=== PATIENT | female | born 1995 | race Caucasian/White ===

== ENCOUNTER → 2017-01-08 | Outpatient (CLI) | payer BC ==
[~2017-01-08] MED LIST: NORE0.3527 PO; SNQ/25 PO
[2017-01-11 00:36] LABS: CHLAMYDIA TRACH RNA*** NOT DETECTED (NOT DETECTED); GC (NEIS GONORRHOEAE)RNA** NOT DETECTED (NOT DETECTED)
== END | disposition home or self-care (01) ==
LOC: C.LABSPEC 17:57
PROVIDERS: ATTEND Physician Assistant
DX: N92.6 Irregular menstruation, unspecified (principal)

== ENCOUNTER → 2017-01-15 | Outpatient (CLI) | payer BC | END | disposition home or self-care (01) | LOC: C.RDSM 08:00 | PROVIDERS: ATTEND Physical Medicine & Rehabilitation Sports Medicine | DX: G57.51 Tarsal tunnel syndrome, right lower limb (principal) ==

== ENCOUNTER → 2017-02-06 | Day surgery (SDC) | payer BC ==
[2017-01-18 09:45] VITALS: Ht 172.7 cm; Wt 83.6 kg
[~2017-02-06] VITALS: Ht 172.7 cm; Wt 83.6 kg
[~2017-02-06] MED LIST changes: +ATROPINE SULFATE 0.1 MG/ML 5ML SYR IV PRN; +CEFAZOLIN 2000 MG/60 ML D5W IV SCH; +DEXAMETHASONE SOD INJ 4 MG/ML VIAL ONE; +EpHEDrine SULFATE INJ 50 MG/ML AMP IV PRN; +FENTANYL CITRATE INJ 50 MCG/1 ML 2 ML VIAL ONE; +FLUMAZENIL 0.1 MG/1 ML 10 ML VIAL IV PRN; +KETOROLAC TROMETHAMINE 30 MG/ML VIAL ONE; +LACTATED RINGER'S 1000ML 1,000 ML IV SCH; +LIDOCAINE HCL 2% 2 ML VIAL (20MG/ML) ONE; +MIDAZOLAM HCL 1 MG/ML 2ML VIAL ONE; +NALOXONE HCL 0.4 MG/1 ML VIAL/CARP IV PRN; +NURSING VERBAL MED ORDER ONE; +ONDANSETRON INJ 2 MG/ML 2 ML VIAL IV PRN; +ONDANSETRON INJ 2 MG/ML 2 ML VIAL ONE; +OXYCODONE/ACETAMINOPHEN 5-325 TAB PO PRN; +PROMETHAZINE HCL INJ 12.5 MG in SODIUM CHLORIDE 0.9% 50ML 50 ML IV PRN; +PROPOFOL IV EMULSION 10 MG/ML 20 ML VIAL IV ONE; +SODIUM CHLORIDE 0.9% 1000ML 1,000 ML IV SCH
--- NOTE | 2017-02-06 08:40 | Discharge Instructions ---
Discharge Instructions Date of Service Feb 06, 2017. Visit Reason for Visit: Right Tarsal Tunnel Syndrome Discharge Discharge Diagnosis / Problem: same Discharge Goals Goal(s): Decrease discomfort, Improve function Medications Stopped Medications Name(s): na Restart Stopped Medication(s): use all scripts as directed Activity Recommendations Activity Limitations: as noted below Lifting Limitations: until after follow-up appointment Exercise/Sports Limitations: until after follow-up appointment May Resume Sexual Activity: when tolerated Shower/Bathe: keep incision dry Driving or Machine Use: Weightbearing Status: Right weightbearing (as tolerated) Anesthesia . Post Anesthesia Instructions: If you have had General Anesthesia or IV Sedation: * Do not drive today. * Resume driving when surgeon permits. * Do not make important decisions or sign legal documents today. * Call surgeon for: 1. Temperature elevations greater than 101 degrees F. 2. Uncontrollable pain. 3. Excessive bleeding. 4. Persistent nausea and vomiting. 5. Medication intolerance (nausea, vomiting or rash). * For nausea and vomiting use only clear liquids such as: tea, soda, bouillon until nausea subsides, then gradually increase diet as tolerated. * If you have any concerns or questions, call your surgeon's office. If physician is unavailable and it is an emergency, call 911 or go to the nearest emergency room. . Instructions / Follow-Up Instructions / Follow-Up DIET: * Resume previous diet. MEDICATIONS: * Please take your prescriptions as instructed at your pre-op appointment and/ or see medication discharge instructions listed above. * If concerns develop, call your physician's office at . SPECIAL CARE INSTRUCTIONS: * Ice/Elevate as instructed. * Keep dressing clean, dry, intact. * Your surgical extremity may be discolored due to prepping agents used on the skin. A bluish-green tint is a normal variant and should not cause alarm. Call your doctor at [phone] if: * Temperature above 101 degrees * Pain not relieved by pain medicine ordered * There is increased drainage or redness from any incision * You have any unanswered questions, problems or concerns. FOLLOW UP VISIT: * If not already scheduled, please call the office at to schedule a follow-up appointment. Diet Recommendations Recommended Home Diet: resume previous diet Procedures Procedures Performed: Right tarasal tunnel release Pending Studies Studies pending at discharge: no Medical Emergencies . Who to Call and When: Medical Emergencies: If at any time you feel your situation is an emergency, please call 911 immediately. . Non-Emergent Contact Non-Emergency issues call your: Specialist Call Non-Emergent contact if: temperature is above 101.5 . . "Provider Documentation" section prepared by Kurt Baron. .
--- NOTE | 2017-02-06 09:41 | History & Physical Bridge Note ---
H&P Re-Evaluation Bridge Note: I have examined the patient, reviewed the History & Physical and in the interval since the performance of the History & Physical I have noted the following changes of clinical significance: No changes noted
--- NOTE | 2017-02-06 12:03 | [facility] Post Operative Brief Note ---
Immediate Operative Summary Operative Date Feb 06, 2017. Pre-Operative Diagnosis Right Tarsal Tunnel Syndrome Post-Operative Diagnosis Same Procedure(s) Performed Right Tarsal Tunnel Open Release Surgeon Dr. Baron Home Paraprofessional Surgeon(s) Greer Cuenca PA-C Estimated Blood Loss Trace Findings nerve adhesions Specimens None Drains none Anesthesia LMA Complication(s) None Disposition Recovery Room / PACU
[2017-02-06] MEDS: HYDROmorphone INJ 1 MG/ML SYR IV PRN ×3 (12:20→12:44)
--- NOTE | 2017-02-06 12:53 | OPERATIVE REPORT ---
DATE OF OPERATION: 02/06/2017 PREOPERATIVE DIAGNOSIS: Tarsal tunnel syndrome, right lower extremity, post-ankle sprain. POSTOPERATIVE DIAGNOSIS: Same. OPERATION PERFORMED: Tarsal tunnel release, posterior tibial nerve decompression right lower extremity. SURGEON: Dr. Baron. NARROW GAUGE BRAKEMAN: Tenzin Cuenca PA-C. No resident or fellow available. PERIOPERATIVE SITUATION: Medically cleared female who has burning into her foot and pain into her foot in the arch, numbness into the plantar surface of her foot and has been documented by EMG nerve conduction study following post-ankle sprain. She has no sign of any FHL entrapment and no posterior tibiotalar impingement, os trigonum syndrome. Options were discussed with the patient and family, she is leaving for college, wants to try to get this taken care of now. She understands that there is no guarantee. OPERATION AND FINDINGS: OPERATION: The patient appropriately identified, site verified, consent verified, 2 grams of Ancef confirmed as being given. The right lower extremity was prepped and draped in usual routine fashion. Tourniquet was inflated to 275 mmHg after exsanguination of limb with a rubber Esmarch bandage for a total of 20 minutes. Posterior approach to the ankle is made. Curvilinear incision retromalleolar, full thickness flaps raised and dissection carried from proximal to distal. The nerve was quite scarred to the artery and vein, it was completely adhesed to that area indicative of ankle injury. It was dissected clean through the master knot of Wolf with care taken to protect all 3 branches of the posterior tibial nerve. The nerve and artery were then completely dissected free of each other and the tourniquet deflated. There was no major bleeding encountered. The wound was then irrigated. The FHL was then inspected. There was no major injury back there. This was left alone. The procedure was then terminated after final irrigation, closed with horizontal 3-0 nylon suture, dressed appropriately. Estimated blood loss was trace. Crystalloid 1000 mL. DVT prophylaxis per protocol. I attest to the content of the Intraoperative Record and any orders documented therein. Any exception s are noted below.
--- NOTE | 2017-02-06 13:29 | Anesthesia Progress Nt - [facility] ---
Anesthesia Post Op Note Date & Time Feb 06, 2017 at 13:28 Vital Signs Pain Intensity: 3 Vital Signs Past 12 Hours Date Time Temp Pulse Resp B/P (MAP) Pulse Ox O2 Delivery O2 Flow Rate FiO2 02/06/17 13:11 36.2 79 18 116/75 (89) 100 Room Air 02/06/17 13:02 119/70 02/06/17 13:01 36.6 64 12 119/70 99 Room Air 02/06/17 13:01 66 11 02/06/17 13:01 64 11 100 02/06/17 12:57 113/67 02/06/17 12:56 65 12 100 02/06/17 12:56 66 12 02/06/17 12:52 109/74 02/06/17 12:51 64 12 02/06/17 12:51 62 12 99 02/06/17 12:47 123/72 02/06/17 12:46 65 16 02/06/17 12:46 67 16 100 02/06/17 12:42 117/77 02/06/17 12:41 59 11 02/06/17 12:41 61 11 100 02/06/17 12:40 61 10 100 02/06/17 12:40 61 10 02/06/17 12:37 116/79 02/06/17 12:35 60 15 02/06/17 12:35 59 15 100 02/06/17 12:32 119/74 02/06/17 12:30 71 13 100 02/06/17 12:30 66 13 02/06/17 12:27 114/81 02/06/17 12:25 89 16 100 02/06/17 12:25 87 16 02/06/17 12:22 126/73 02/06/17 12:20 93 15 100 02/06/17 12:20 96 15 02/06/17 12:17 124/62 02/06/17 12:15 100 18 100 02/06/17 12:15 101 18 02/06/17 12:12 133/75 02/06/17 12:10 36.5 106 16 133/75 100 Diffusion Mask 6 02/06/17 09:32 36.5 103 22 113/88 (96) 99 Room Air Notes Mental Status: alert / awake / arousable, participated in evaluation Pt Amnestic to Procedure: Yes Nausea / Vomiting: adequately controlled Pain: adequately controlled Airway Patency, RR, SpO2: stable & adequate BP & HR: stable & adequate Hydration State: stable & adequate Anesthetic Complications: no major complications apparent
[2017-02-06 13:34] VITALS: BP 107/68; PULSE 65; O2SAT 99
--- NOTE | 2017-02-06 18:52 | OPERATIVE REPORT ---
PREOPERATIVE DIAGNOSIS: Right ankle tarsal tunnel syndrome. POSTOPERATIVE DIAGNOSIS: Right ankle same. PROCEDURE: Right ankle open tarsal tunnel release. SURGEON: Dr. Baron. MEDICAL RECEPTIONIST BILLER: Tenzin Cuenca PA-C. HISTORY OF PRESENT ILLNESS: This 21-year-old white female presented to the office with complaints of right foot numbness and tingling with burning into her arch after spraining her ankle last winter. Preoperative EMG was obtained. She elected to proceed with surgical intervention after being educated about potential risks and outcomes. OPERATION: The patient was taken to the operating room where she was given general anesthetic. She was prepped and draped in the usual sterile fashion. Please see Dr. Baron's operative report for specifics of the procedure. I was present for the entire case from initial patient positioning through final wound closure. Assistance was provided in tissue retraction, hemostasis, and final wound closure. The patient was taken to the recovery room in satisfactory condition.
== END | disposition home or self-care (01) ==
LOC: X.SURG 09:09
PROVIDERS: ATTEND Physical Medicine & Rehabilitation Sports Medicine
DX: G57.51 Tarsal tunnel syndrome, right lower limb (principal); Z83.3 Family history of diabetes mellitus

== ENCOUNTER → 2017-05-02 | Outpatient (CLI) | payer BC ==
[~2017-05-02] MED LIST changes: -ATROPINE SULFATE 0.1 MG/ML 5ML SYR IV PRN; -CEFAZOLIN 2000 MG/60 ML D5W IV SCH; -DEXAMETHASONE SOD INJ 4 MG/ML VIAL ONE; -EpHEDrine SULFATE INJ 50 MG/ML AMP IV PRN; -FENTANYL CITRATE INJ 50 MCG/1 ML 2 ML VIAL ONE; -FLUMAZENIL 0.1 MG/1 ML 10 ML VIAL IV PRN; -KETOROLAC TROMETHAMINE 30 MG/ML VIAL ONE; -LACTATED RINGER'S 1000ML 1,000 ML IV SCH; -LIDOCAINE HCL 2% 2 ML VIAL (20MG/ML) ONE; -MIDAZOLAM HCL 1 MG/ML 2ML VIAL ONE; -NALOXONE HCL 0.4 MG/1 ML VIAL/CARP IV PRN; -NORE0.3527 PO; -NURSING VERBAL MED ORDER ONE; -ONDANSETRON INJ 2 MG/ML 2 ML VIAL IV PRN; -ONDANSETRON INJ 2 MG/ML 2 ML VIAL ONE; -OXYCODONE/ACETAMINOPHEN 5-325 TAB PO PRN; -PROMETHAZINE HCL INJ 12.5 MG in SODIUM CHLORIDE 0.9% 50ML 50 ML IV PRN; -PROPOFOL IV EMULSION 10 MG/ML 20 ML VIAL IV ONE; -SODIUM CHLORIDE 0.9% 1000ML 1,000 ML IV SCH
[2017-05-05 11:12] LABS: CHLAMYDIA TRACH RNA*** NOT DETECTED (NOT DETECTED); GC (NEIS GONORRHOEAE)RNA** NOT DETECTED (NOT DETECTED)
== END | disposition home or self-care (01) ==
LOC: C.LABSPEC 13:46
PROVIDERS: ATTEND Physician Assistant
DX: Z01.419 Encounter for gynecological examination (general) (routine) without abnormal findings (principal)

== ENCOUNTER → 2017-06-15 | Outpatient (CLI) | payer BC ==
[~2017-06-15] MED LIST changes: +OPTIRAY 320 IV PRN
--- NOTE | 2017-06-15 17:28 | DIAGNOSTIC IMAGING REPORT ---
(CHEST) THORAX WITH CLINICAL HISTORY: 21 years-old Female presenting with EVAL FOR ANEUDY SYNDROME. TECHNIQUE: Multidetector CT imaging of the chest was performed after the administration of intravenous contrast. IV contrast: 93 mL of Optiray 320.. A dose lowering technique was used consistent with the principles of ALARA (as low as reasonably achievable). COMPARISON: None. CT DOSE (mGy.cm): The estimated cumulative dose is 365.36 mGycm. FINDINGS: Protective Services Officer topogram: Unremarkable. On soft tissue windows, under developed left breast tissue in comparison to the right. The left pectoralis major and minor muscles are present. No other abnormality is noted. Residual thymic tissue evident. No axillary, supraclavicular, hilar, or mediastinal lymphadenopathy. Normal aorta. Normal heart size. No pericardial or pleural effusion. Upper abdomen normal. On lung windows, no focal infiltrate or nodule. Airways patent. On bone windows, normal osseous structures. No hypoplasia of the ribs. IMPRESSION: 1. Asymmetric underdeveloped left breast tissue in comparison to the right. However, the pectoralis muscle complex is present and no additional abnormality is noted. If [place] syndrome is present, this would represent a very mild variant. Electronically signed by: Justus Lainez M.D. 06/15/2017 5:27 PM Dictated Date/Time: 06/15/2017 5:18 PM
== END | disposition home or self-care (01) ==
LOC: C.CTS 16:22
PROVIDERS: ATTEND Physician Assistant
DX: N64.89 Other specified disorders of breast (principal)

== ENCOUNTER → 2017-07-23 | Outpatient (CLI) | payer BC ==
[~2017-07-23] MED LIST changes: +GADAVIST IV PRN; -OPTIRAY 320 IV PRN
--- NOTE | 2017-07-23 13:25 | DIAGNOSTIC IMAGING REPORT ---
MRI OF THE BRAIN COMBO CLINICAL HISTORY: Migraine headache. Dizziness. COMPARISON STUDY: MRI of the brain dated 02/12/2014. TECHNIQUE: MRI of the brain was performed utilizing various T1 and T2-weighted sequences in the axial, sagittal, and coronal planes. Contrast-enhanced sequences were acquired following the administration of 8 cc of Gadavist. FINDINGS: Brain parenchyma: The brain parenchyma is normal in appearance. There is no hemorrhage or mass effect. There is no restricted diffusion to suggest acute ischemia. No enhancing mass lesion is identified on the postcontrast images. Morse-white matter differentiation is preserved. No extra-axial fluid collection is seen. The cerebellar tonsils are normal in configuration. Ventricles, sulci, and cisterns: Normal in configuration. Pituitary and sella: Unremarkable. Intracranial vasculature: Normal flow voids are maintained at the skull base. Orbits: The bony orbits are grossly intact. Orbital contents are normal in appearance. Sinuses and mastoids: Large retention cyst are present within the maxillary antra. These measure up to 3 cm. The paranasal sinuses are otherwise clear, as are the mastoid air cells. Calvarium: Unremarkable. Cervical cord: Partially visualized cervical spinal cord is normal in morphology and signal intensity. IMPRESSION: No acute intracranial abnormality. Electronically signed by: Sammy Herron M.D. 07/23/2017 1:24 PM Dictated Date/Time: 07/23/2017 1:21 PM
--- NOTE | 2017-07-24 13:46 | EEG Procedure Note ---
EEG Procedure Note Date of Service Jul 23, 2017. Start / End Times Start Time: 2:24 PM End Time: 2:45 PM Referring Physician RICKEY Tolentino History This is a 21-year-old female with episodes of lost consciousness. EEG for further evaluation of possible seizure etiology. Home Medication List Scheduled Doxepin (Sinequan), 25 MG PO HS Inpatient Medication List Current Inpatient Medications Medications (Trade) Dose Ordered Sig/Christiano Route Start Time Stop Time Status Last Admin Dose Admin Gadobutrol (Gadavist) 8 mmol UD PRN IV 07/23/17 13:15 07/27/17 13:14 Description This is a 21 electrode EEG with a single channel dedicated to limited EKG. The electrodes were placed in accordance with the International 10-20 system. At the start of the recording the patient was in an awake state. Background was well organized and composed of symmetric mixed alpha and beta frequencies. There was a symmetric well-formed moderate amplitude 11-12Hz posterior dominant rhythm that was reactive to eye opening and closure. Hyperventilation with good effort produced no abnormalities. Intermittent photic stimulation at various frequencies produced no abnormalities. Sleep was indicated by vertex waves and symmetric sleep spindles. Interpretation This is a normal awake and asleep routine EEG. There was no electrographic seizures or epileptiform discharges. Clinical Correlation A normal EEG does not rule out epilepsy if there is a strong clinical suspicion.
== END | disposition home or self-care (01) ==
LOC: C.MRIBC 12:19
PROVIDERS: ATTEND Physician Assistant
DX: R55 Syncope and collapse (principal)

== ENCOUNTER → 2018-04-23 | Outpatient (CLI) | payer BC ==
[~2018-04-23] MED LIST changes: -GADAVIST IV PRN
== END | disposition home or self-care (01) ==
LOC: C.PAPS 13:54
PROVIDERS: ATTEND Obstetrics & Gynecology
DX: Z01.419 Encounter for gynecological examination (general) (routine) without abnormal findings (principal); R87.616 Satisfactory cervical smear but lacking transformation zone

== ENCOUNTER 2020-08-02 02:06 | Inpatient (IN) ==
[2020-08-02] MEDS ORDERED: OXYTOCIN 30 UNITS/500 ML BAG IV PRN ×3 (07:42→23:49)
[2020-08-02 08:15] LABS: Hematocrit (blood only) 31.5 % (37-47); Hemoglobin 10.4 g/dL (12.0-16.0); Mean Corpuscular Hemoglobin 27.6 pg (25-34); Mean Corpuscular Volume 83.6 fL (80-100); Mean Platelet Volume 11.1 fL (7.4-10.4); Platelet Count 157 K/uL (130-400); RDW Coefficient of Variation 12.8 % (11.5-14.5); RDW Standard Deviation 38.8 fL (36.4-46.3); Red Blood Count 3.77 M/uL (4.2-5.4); White Blood Count 5.75 K/uL (4.8-10.8)
[2020-08-02] MEDS: LACTATED RINGER'S 1,000 ML IV PRN ×2 (08:54→14:12)
--- NOTE | 2020-08-02 13:18 | History & Physical Report ---
Date of Service August 02, 2020 Assessment & Plan (1) Supervision of normal intrauterine in primigravida: 24yo G1 at 39.2 weeks GA. Elective IOL 1. Fetus: Cat 1 2. Labor: Oxytocin. Will AROM when able 3. GBS negative 4. Vitals: WNL 5. PPH: Low risk Admission and Anticipated Discharge Date Admission Date: August 02, 2020 History of Present Illness Primary Care Provider: RANJAN PCP 24yo G1 at 39.2 weeks GA. Presents for elective IOL. has been uncomplicated to date. Labs Reviewed: Initial OB Labs12/31/19 Blood Type & RH O postive Antibody Screen-negative HCT/HGB 11.9/35.7 Platelets-233 Pap Test-negative 01/12/2020 Chlamydia-negative Gonorrhe-negative Rubella-immune RPR-non reactive Urine Culture/Screen HBsAg-non reactive HIV-non reactive MCV-89.6 Genetic OB Labs CF-NEGATIVE SMA-NEGATIVE (-) cfDNA/MSAFP- [facility] Allergies Allergy/AdvReac Type Severity Reaction Status Date / Time No Known Drug Allergies Allergy Unknown Verified 07/28/20 15:11 Home Medications Medication Instructions Recorded Confirmed Type prenat.vits,ervin,myp-ptcm-[id number] 1 tab PO HS 02/12/20 08/02/20 History breast pump #1 ea 06/18/20 07/28/20 Rx Patient History Medical History Abnormal biochemical finding on screening of mother Anxiety and depression Encounter for anatomic survey Migraine without aura, not intractable, without status migrainosus Varicella vaccine Surgical History History of hip surgery History of wisdom tooth extraction Hx of foot surgery Tarsal Tunnel Repair Family History Grandmother (Maternal) [place] disease Diabetes Mother Diabetes Type 1 diabetes Other Breast cancer No family history of adverse response to anesthesia No family history of bleeding disorder Social History (Updated 05/21/20 @ 15:28 by Virginia Thurman) Smoking Status: Never smoker Second Hand Exposure: No; Do You Dip or Chew Tobacco: No; Tobacco Cessation Education Requested by Patient: No Hx Alcohol Use: No Hx Substance Use: No Preferred Language: Colombian Communication Ability: Effective Poultry Buyer Required: No Beliefs That Will Affect Care: None marital status: Single marital status details: YEIMY Samaniego (27) [phone] Current Living Situation: Parent Current Living Situation Comment: lives with parents, 1 dog current occupational status: employed current occupation: [employer] Feels Safe at Home: Yes Safety Concerns: Feels Safe At This Time Assistive Devices: None Physical Exam Constitutional: WD/WN, vitals as above Respiratory: normal respiratory effort, lungs clear to auscultation Gastrointestinal (Abdomen): Percussion/Palpation: abdomen soft; abdomen nontender, no guarding and abdomen not rigid Genitourinary: OB Exam Abdomen: + vertex Manual OB Exam: + cervical dilation (1.5), + cervical effacement 80% and + station -2 OB Exam Monitor Tracing: + external FHT monitor used, + external uterine monitor used, + category I and + normal FHT variability; no early decelerations present, no late decelerations present and no variable decelerations Results & Data ([facility]) Vital Signs (Past 12 Hours) Vital Signs Temp Pulse Resp BP 08/02/20 13:00 18 08/02/20 11:46 18 08/02/20 10:52 36.4 C L 18 08/02/20 10:00 18 08/02/20 09:54 70 115/67 08/02/20 09:30 18 08/02/20 09:00 18 08/02/20 08:55 78 121/76 08/02/20 08:00 75 18 117/71 08/02/20 07:55 75 117/71 08/02/20 07:38 36.0 C L 18 08/02/20 07:35 36 C L 66 18 Coding Level of Care Code None Diagnoses Supervision of normal intrauterine in primigravida Z34.00
--- NOTE | 2020-08-02 13:26 | Labor Progress Brief Note ---
Date of Service August 02, 2020 Subjective Reason For Note: Routine Evaluation Assessment & Plan (1) Supervision of normal intrauterine in primigravida: 24yo G1 at 39.2 weeks GA. Elective IOL 1. Fetus: Cat 1 2. Labor: Oxytocin. AROM clr 3. GBS negative 4. Vitals: WNL 5. PPH: Low risk Admission and Anticipated Discharge Date Admission Date: August 02, 2020 Physical Exam Genitourinary: OB Exam Abdomen: + vertex Manual OB Exam: + cervical dilation 2 cm, + cervical effacement 90%, + station -2 and + amniotic fluid clear OB Exam Monitor Tracing: + external FHT monitor used, + external uterine monitor used, + category I and + normal FHT variability; no early decelerations present, no late decelerations present and no variable decelerations Results & Data ([facility]) Vital Signs (Past 12 Hours) Vital Signs Temp Pulse Resp BP 08/02/20 13:13 18 08/02/20 13:00 18 08/02/20 11:46 18 08/02/20 10:52 36.4 C L 18 08/02/20 10:00 18 08/02/20 09:54 70 115/67 08/02/20 09:30 18 08/02/20 09:00 18 08/02/20 08:55 78 121/76 08/02/20 08:00 75 18 117/71 08/02/20 07:55 75 117/71 08/02/20 07:38 36.0 C L 18 08/02/20 07:35 36 C L 66 18 Coding Level of Care Code None Diagnoses Supervision of normal intrauterine in primigravida Z34.00
[2020-08-02] MEDS ORDERED: BUPIVACAINE 0.25% 30 ML VIAL ONE (13:53)
[2020-08-02] MEDS ORDERED: SODIUM CHLORIDE 0.9% INJ 10 ML VIAL ONE (13:53)
[2020-08-02] MEDS ORDERED: fentaNYL citrate 100 MCG/2 ML VIAL ONE (13:53)
[2020-08-02] MEDS ORDERED: ePHEDrine sulfate 50 MG/ML AMP ONE (13:53)
[2020-08-02] MEDS ORDERED: fentaNYL 2MCG/ML ROPIVACAINE 1.25MG/ML 100 ML BAG EPI ONE (13:54)
[2020-08-02] MEDS ORDERED: ONDANSETRON INJ 2 MG/ML 2 ML VIAL IV PRN (13:59)
[2020-08-02] MEDS ORDERED: diphenhydrAMINE 50 MG/ML VIAL IV PRN (13:59)
[2020-08-02] MEDS ORDERED: fentaNYL 2MCG/ML ROPIVACAINE 1.25MG/ML 100 ML BAG EPI PRN (13:59)
[2020-08-02] MEDS ORDERED: NALOXONE HCL 1 MG in SODIUM CHLORIDE 0.9% 1000ML 1,000 ML IV PRN (13:59)
[2020-08-02] MEDS ORDERED: NALOXONE HCL 0.4 MG/1 ML VIAL/CARP IV PRN (13:59)
[2020-08-02] MEDS ORDERED: ePHEDrine sulfate 50 MG/ML AMP IV PRN (13:59)
--- NOTE | 2020-08-02 14:02 | Anesthesiology Consultation ---
Date of Service August 02, 2020 Assessment & Plan (1) Encounter for pre-operative examination: Chart Review Chart Review: Patient NOT seen in Pre Admission Testing and Acceptable Risk for Labor Epidural Consults Requested none History Height/Weight Height: 5 ft 8 in Weight: 97.069 kg Allergies Allergy/AdvReac Type Severity Reaction Status Date / Time No Known Drug Allergies Allergy Unknown Verified 07/28/20 15:11 Medications Home Medications Medication Instructions Recorded Confirmed Last Taken prenat.vits,ervin,xgh-zovm-[id number] 1 tab PO HS 02/12/20 08/02/20 08/01/20 breast pump #1 ea 06/18/20 07/28/20 Unknown Active Medications Generic Name Dose Route Start Last Admin Trade Name Freq PRN Reason Stop Dose Admin Lactated Ringer's 1,000 mls @ 125 mls/hr 08/02/20 07:42 08/02/20 14:12 Lr IV 08/04/20 07:41 999 mls/hr .Q8H PRN Administration L&D Protocol Protocol Oxytocin 30 units in 500 mls @ 10 mls/hr 08/02/20 07:42 08/02/20 12:00 Pitocin IV 08/04/20 07:41 0.6 units/hr .Q24H PRN 10 mls/hr Labor Induction/Augmentation Titration Protocol 0.6 UNITS/HR Past Medical History Medical History Abnormal biochemical finding on screening of mother Anxiety and depression Encounter for anatomic survey Migraine without aura, not intractable, without status migrainosus Varicella vaccine Exercise / Class Metabolic Activity II 4-5 Yardwork/Stairs/Walk up hill Past Family History Family History Grandmother (Maternal) [place] disease Diabetes Mother Diabetes Type 1 diabetes Other Breast cancer No family history of adverse response to anesthesia No family history of bleeding disorder Past Surgical History Surgical History History of hip surgery History of wisdom tooth extraction Hx of foot surgery Tarsal Tunnel Repair Past Anesthesia History No Hx of Anesthesia Complications and No Family Hx of Anesthesia Complications History of PONV No Hx of PONV and No Hx of Motion Sickness Social History Smoking Status: Never smoker Do You Dip or Chew Tobacco: No Hx Alcohol Use: No Hx Substance Use: No substance use type: does not use Physical Exam Vital Signs Last Vital Signs Temp 36.4 C L 08/02/20 10:52 Pulse 81 08/02/20 14:19 Resp 18 08/02/20 13:13 BP 131/76 08/02/20 14:18 Pulse Ox 91 08/02/20 14:19 Testing Laboratory Results 08/02/20 08:04
[2020-08-02] MEDS ORDERED: HYDROCORTISONE ACETATE 25 MG SUPP PR PRN (17:55)
[2020-08-02] MEDS ORDERED: BENZOCAINE 20% AER SPR 82.5 GM CAN EXT PRN (17:55)
[2020-08-02] MEDS ORDERED: DIPHTHERIA/TETANUS/PERTUSSIS 0.5 ML SYR/VIAL IM ONE (17:55)
[2020-08-02] MEDS ORDERED: ACETAMINOPHEN 325 MG TAB PO PRN (17:55)
[2020-08-02] MEDS ORDERED: SUPERCREAM 0.870% 15 GM JAR EXT PRN (17:55)
--- NOTE | 2020-08-02 18:15 | Anesthesia Procedure Note ---
Date of Service August 02, 2020 Anesthesia Post Epidural Note Vital Signs Vital Signs: Temp Pulse Resp BP Pulse Ox 36.7 C 81 18 134/78 90 08/02/20 15:00 08/02/20 18:14 08/02/20 15:00 08/02/20 18:14 08/02/20 17:56 Notes Mental Status: alert / awake / arousable and participated in evaluation Patient Amnestic to Procedure: No Nausea / Vomiting: adequately controlled Pain: adequately controlled Airway Patency, RR, SpO2: stable & adequate BP & HR: stable & adequate Hydration State: stable & adequate Neuraxial Anesthesia: was administered and sensory block is resolving Anesthetic Complications: no major complications apparent and Pt Satisfied with anesthetic care Epidural: Removed without complications and With tip intact
[2020-08-02] MEDS: IBUPROFEN 600 MG TAB PO PRN (20:02)
[2020-08-02] MEDS: DOCUSATE SODIUM 100 MG CAP PO SCH (21:14)
[2020-08-02] MEDS ORDERED: METHYLERGONOVINE MALEATE 0.2 MG/ML AMP IM ONE (22:28)
[2020-08-02] MEDS: OXYTOCIN 30 UNITS/500 ML BAG IV PRN (22:30)
[2020-08-02] MEDS ORDERED: miSOPROStoL 200 MCG TAB ONE (23:39)
[2020-08-02] MEDS ORDERED: miSOPROStoL 200 MCG TAB PR ONE (23:49)
[2020-08-03] MEDS: OXYTOCIN 30 UNITS/500 ML BAG IV PRN (00:12)
--- NOTE | 2020-08-03 00:20 | Delivery Summary ---
DATE OF OPERATION: 08/02/2020 PROCEDURE: Normal spontaneous vaginal delivery with second-degree perineal laceration repair. SURGEON: Esvin Yeh MD. PREOPERATIVE DIAGNOSES: 1. Single intrauterine at 39 weeks 2 days gestational age. 2. Elective induction of labor. POSTOPERATIVE DIAGNOSES: 1. Single intrauterine at 39 weeks 2 days gestational age. 2. Elective induction of labor. 3. Status post procedure. ESTIMATED BLOOD LOSS: 200 mL. DRAINS: None. FLUIDS: Continuous lactated ringer. URINE OUTPUT: None. COMPLICATIONS: None. FINDINGS: Viable female infant with weight pending, Apgars of 8 and 9 at 1 and 5 minutes respectively. INDICATIONS: The patient is a 24-year-old G1, P0, admitted at 39 weeks 2 days gestational age for elective induction of labor. At first evaluation, the patient was found to be 1.5 cm dilated, 80% effaced, -2 station. She was started on oxytocin per regular protocol. She underwent artificial rupture of membranes for clear fluid approximately 4-5 hours later and received an epidural shortly thereafter, the patient then progressed in labor quickly and at next evaluation at approximately 5:00 p.m., the patient was found to be complete-complete +2 station with a strong urge to push. The patient pushed for approximately 20 minutes to achieve delivery. DESCRIPTION OF PROCEDURE: The patient progressed to 10 cm dilated, 100% effaced, +2 station, pushed over intact perineum with epidural anesthesia and delivered a viable female infant, weight and Apgars as noted above. Head of the delivered in GRETCHEN position, rest into right transverse. No nuchal cord was noted. Body and shoulders quickly followed. was noted to be vigorous soon after delivery and a 1-minute delayed cord clamping was initiated. Cord was then double clamped and cut. remained on maternal abdomen. Cord blood was then obtained. Attention was then turned to deliver the placenta, which was delivered intact, 3-vessel cord, gentle cord traction. On inspection of perineum, vagina, and cervix, there was noted to be second degree perineal laceration, which was repaired with 3-0 Vicryl continuous crown stitch. Needle, sponge and instrument counts were correct at the completion of the case. Both mother and stable in the immediate post-delivery period. I attest to the content of the Intraoperative Record and any orders documented therein. Any exception s are noted below.
[2020-08-03] MEDS: IBUPROFEN 600 MG TAB PO PRN ×4 (01:49→17:06)
[2020-08-03] MEDS: METHYLERGONOVINE MALEATE 0.2 MG TAB PO SCH ×5 (05:24→20:39)
[2020-08-03 06:37] LABS: Hematocrit (blood only) 26.9 % (37-47)
--- NOTE | 2020-08-03 07:28 | Obstetrical Progress Note ---
Date of Service <Jalen Gaston MD - Last Filed: 08/03/20 07:28> August 03, 2020 Assessment & Plan <Jalen Gaston MD - Last Filed: 08/03/20 07:28> (1) Elective induction of labor planned: A/P: Eliana Scott is a 24 y/o female , PPD#1 following elective induction of labor at 39+2 weeks. * Patient feels well today; eating well, voiding well, ambulating well * Pain well-controlled with ibuprofen 600mg q4h prn * Routine postcesarean care: OOB, ambulation, diet progression as tolerated * After discharge, will have six-week follow-up with Dr. Yeh. Subjective <Jalen Gaston MD - Last Filed: 08/03/20 07:28> Ambulation: ambulating normally Voiding: no voiding problems Passing Gas:: Yes Diet Tolerance:: regular diet Lochia:: Mayra Scott is a 24 y/o female , PPD#1 following elective induction of labor at 39+2 weeks. She reports feeling well overall this morning. Mild abdominal cramping and 4/10 pain well managed on analgesics. Voiding well. Tolerating meals overnight without difficulty. Has not yet been out of bed. + passing gas and no bowel movement. Has persistent lochia with some improvement this morning. Currently . Constitutional: no fever and no chills Respiratory: no cough and no dyspnea Cardiovascular: no chest pain, no palpitations and no edema Gastrointestinal: no nausea and no vomiting Genitourinary (female): no dysuria Physical Exam <Jalen Gaston MD - Last Filed: 08/03/20 07:28> General: alert, oriented, no acute distress Cardiac: regular rate and rhythm, no murmurs appreciated Respiratory: lungs clear to auscultation bilaterally a/p, no wheezes/rales/rhonchi, no increased work of breathing, symmetrical chest rise, no respiratory distress Abdomen: soft, minimally tender, nondistended, bowel sounds present Uterus: uterine fundus firm, palpable 1 cm below umbilicus, Surgical scar clean and healing well Lower extremities: no lower extremity edema or swelling, no deep calf pain, Colten's negative bilaterally Constitutional no acute distress Respiratory normal respiratory effort, lungs clear to auscultation Cardiovascular RRR, no murmur, no edema Gastrointestinal (Abdomen) Inspection/Auscultation: normal bowel sounds Percussion/Palpation: abdomen soft Results & Data ([facility]) <Jalen Gaston MD - Last Filed: 08/03/20 07:28> Vital Signs (Past 12 Hours) Vital Signs Temp Pulse Pulse Resp BP BP Pulse Ox 08/03/20 04:10 36.8 C 95 H 18 113/74 99 08/02/20 23:00 37.2 C 65 16 134/92 98 08/02/20 19:45 36.9 C 69 16 129/81 100 08/02/20 19:24 86 124/59 L <Esvin Yeh MD - Last Filed: 08/03/20 08:00> Co-Signing Physician Notes Patient doing well and agree with the above findings and plan. Evacuated 600ml of clot last night and was given Cytotec and Methergine. Bleeding minimal this am. H/H 9/26.9 and vitals are normal. Will have Guzman removed. Routine post care Resident Activity Tracking <Jalen Gaston MD - Last Filed: 08/03/20 07:28> Resident Involvement: Resident Care Provided Care Provided: OB Delivery
[2020-08-03] MEDS: PRENATAL VITAMIN 1 TAB PO SCH (08:24)
[2020-08-03] MEDS: FERROUS SULFATE 325 MG TAB PO SCH (08:24)
[2020-08-03] MEDS: DOCUSATE SODIUM 100 MG CAP PO SCH ×2 (08:24→20:40)
[2020-08-03] MEDS ORDERED: bisacodyL 5 MG TABEC PO SCH (20:00)
[2020-08-04] MEDS: IBUPROFEN 600 MG TAB PO PRN ×2 (02:31→10:15)
[2020-08-04] MEDS ORDERED: bisacodyL 10 MG SUPP PR PRN (06:00)
[2020-08-04 06:24] LABS: Hematocrit (blood only) 24.5 % (37-47); Hemoglobin 7.7 g/dL (12.0-16.0)
--- NOTE | 2020-08-04 06:52 | Obstetrical Progress Note ---
Date of Service <Jalen Gaston MD - Last Filed: 08/04/20 07:17> August 04, 2020 Assessment & Plan <Jalen Gaston MD - Last Filed: 08/04/20 07:17> (1) Elective induction of labor planned: A/P: Eliana Scott is a 24 y/o female , PPD#2 following elective induction of labor at 39+2 weeks. * Patient feels well today; eating well, voiding well, ambulating well * Pain well-controlled with ibuprofen 600mg q4h prn * Routine postcesarean care: OOB, ambulation, diet progression as tolerated * After discharge, will have six-week follow-up with Dr. Yeh. Subjective <Jalen Gaston MD - Last Filed: 08/04/20 07:17> Ambulation: ambulating normally Voiding: no voiding problems Passing Gas:: Yes Diet Tolerance:: regular diet Lochia:: Mayra Scott is a 24 y/o female , PPD#2 following elective induction of labor at 39+2 weeks. She reports feeling well overall this morning. Minimal abdominal cramping and 1/10 pain well managed on analgesics. Voiding well. Tolerating meals overnight without difficulty. Patient has been able to ambulate some. + passing gas and + bowel movement. Has persistent lochia with improvement this morning. Currently . Constitutional: no fever and no chills Respiratory: no cough and no dyspnea Cardiovascular: no chest pain, no palpitations and no edema Gastrointestinal: no nausea and no vomiting Genitourinary (female): no dysuria Physical Exam <Jalen Gaston MD - Last Filed: 08/04/20 07:17> General: alert, oriented, no acute distress Cardiac: regular rate and rhythm, no murmurs appreciated Respiratory: lungs clear to auscultation bilaterally a/p, no wheezes/rales/rhonchi, no increased work of breathing, symmetrical chest rise, no respiratory distress Abdomen: soft, minimally tender, nondistended, bowel sounds present Uterus: uterine fundus firm and palpable ~3cm below umbilicus Lower extremities: no lower extremity edema or swelling, no deep calf pain, Colten's negative bilaterally Constitutional no acute distress Respiratory normal respiratory effort, lungs clear to auscultation Cardiovascular RRR, no murmur, no edema Gastrointestinal (Abdomen) Inspection/Auscultation: normal bowel sounds Percussion/Palpation: abdomen soft Results & Data ([facility]) <Jalen Gaston MD - Last Filed: 08/04/20 07:17> Vital Signs (Past 12 Hours) Vital Signs Temp Pulse Resp BP 08/04/20 02:28 37.1 C 77 18 119/79 08/03/20 19:54 37.0 C 83 18 112/76 <Pauly William MD, FACOG - Last Filed: 08/04/20 07:36> Co-Signing Physician Notes Resident Physician Supervision Note: I interviewed and examined the patient. Discussed with Dr. Dr. Rao and agree with findings and plan as documented in the note. Any exceptions or c larifications are listed here: Doing well. Tolerating hgb of 7.7. Plan d/c home. Instructions reviewed. Documented By: Pauly William MD, FACOG Resident Activity Tracking <Jalen Gaston MD - Last Filed: 08/04/20 07:17> Resident Involvement: Resident Care Provided Care Provided: OB Delivery
[2020-08-04] MEDS: PRENATAL VITAMIN 1 TAB PO SCH (08:25)
[2020-08-04] MEDS: DOCUSATE SODIUM 100 MG CAP PO SCH (08:25)
[2020-08-04] MEDS: FERROUS SULFATE 325 MG TAB PO SCH (08:25)
== END 2020-08-04 11:50 | disposition home or self-care (01) | DRG 807 ==
LOC: 4S1 07:37 → 4S2 19:49

== ENCOUNTER 2022-09-12 07:36 | Inpatient (IN) ==
[2022-09-12] MEDS ORDERED: LIDOCAINE 1% LOCAL 20 ML VIAL INFIL PRN (08:00)
[2022-09-12] MEDS ORDERED: OXYTOCIN 30 UNITS/500 ML BAG IV PRN ×2 (08:00→16:21)
[2022-09-12 08:29] LABS: Hematocrit (blood only) 32.5 % (34.1-44.9); Hemoglobin 10.9 g/dl (12.0-16.0); Mean Corpuscular Hemoglobin 27.9 pg (25.0-34.0); Mean Corpuscular Hgb Conc 33.5 g/dL (32.0-36.0); Mean Corpuscular Volume 83.3 fL (80.0-100.0); Mean Platelet Volume 10.9 fL (9.4-12.3); Platelet Count 160 K/uL (130-400); RDW Coefficient of Variation 13.3 % (11.5-14.5); RDW Standard Deviation 40.5 fL (36.4-46.3); White Blood Count 8.35 K/ul (4.8-10.8)
[2022-09-12] MEDS: LACTATED RINGER'S 1,000 ML IV PRN ×2 (08:34→13:41)
--- NOTE | 2022-09-12 09:14 | History & Physical Report ---
Date of Service September 12, 2022 Assessment & Plan (1) Encounter for elective induction of labor: Plan: Admit, COVID screen, Pitocin, epidural on request. Anticipate . Admission and Anticipated Discharge Date Admission Date: September 12, 2022 History of Present Illness Primary Care Provider: Angelic Castro MD 26yo at 39w2d for IOL elective. History of 8lb in 2019. O pos, Rub Imm, RPR NR, Hep neg, HIV, neg, GTT fail 1hr pass 2hr, GC/CT neg, TSH 1.4, CF/SM A neg, low risk pano XX. Allergies Allergy/AdvReac Type Severity Reaction Status Date / Time No Known Drug Allergies Allergy Unknown Unknown Verified 09/12/22 08:26 Home Medications Medication Instructions Recorded Confirmed Type prenat.vits,ervin,[id number]-[id number] 1 tab PO DAILY 02/01/22 09/12/22 History ferrous sulfate 325 mg (65 mg 325 mg PO DAILY 09/12/22 09/12/22 History iron) tablet (Iron (ferrous sulfate)) Patient History Medical History Abdominal pain +CONSTIPATION Anemia Anxiety and depression History of COVID-19 08/08/20>SWELLING IN LE (NO CURRENT PROBLEMS) Migraine Varicella vaccination Surgical History History of ankle surgery RT History of colonoscopy History of esophagogastroduodenoscopy (EGD) History of hip surgery RT History of wisdom tooth extraction S/P dilatation and curettage Family History Grandmother (Maternal) Yue disease Diabetes Mother Diabetes Type 1 diabetes Family/Other Down syndrome cousin Father Spina bifida Other Breast cancer No family history of adverse response to anesthesia No family history of bleeding disorder Denies family history of Ovarian cancer Prostate cancer Myocardial infarction Colorectal cancer Colonic polyp Social History Smoking Status: Never smoker Second Hand Exposure: No; Hx Alcohol Use: Yes Alcohol type: beer, wine and hard liquor Hx Substance Use: No Preferred Language: Korean Communication Ability: Effective Continuous Improvement Manager Required: No Beliefs That Will Affect Care: None marital status: Single marital status details: YEIMY Hendricks (23) [phone] Current Living Situation: Significant Other Current Living Situation Comment: lives with SO and daughter current occupational status: employed current occupation: Teacher[employer] Other Information That Helps Us Care for You: No Feels Safe at Home: Yes Safety Concerns: Feels Safe At This Time Assistive Devices: None Physical Exam Constitutional: WD/WN, vitals as above Eyes: PERRL, conjunctivae normal, anicteric sclerae ENMT: external ear and nose normal, oropharynx normal Neck: supple Respiratory: normal respiratory effort and able to speak in complete sentences; no respiratory distress Cardiovascular: Rate/Rhythm: regular rate and regular rhythm Extremities: + pedal edema Gastrointestinal (Abdomen): Gravid / AGA, nontender Musculoskeletal: no cyanosis or clubbing, extremities motor strength 5/5 Skin: no rashes, warm and dry Psychiatric: A+Ox3, euthymic affect Genitourinary: Speculum/Bimanual Exam: no vaginal lesions, no vaginal bleeding and uterus nontender OB Exam Abdomen: + vertex and + estimated weight (7-8) Manual OB Exam: + cervical dilation 3 cm, + cervical effacement 80%, + station -2 and + amniotic fluid (No leaking evident) OB Exam Monitor Tracing: + external FHT monitor used, + external uterine monitor used and + category I Lymphatic: no cervical or axillary lymphadenopathy Results & Data ([facility]) Vital Signs (Past 12 Hours) Vital Signs Temp Pulse Resp BP 09/12/22 08:00 97.5 F L 20 09/12/22 07:51 77 128/69 Coding Level of Care Code None Diagnoses Encounter for elective induction of labor Z34.90
[2022-09-12] MEDS: OXYTOCIN 30 UNITS/500 ML BAG IV PRN ×2 (09:32→16:40)
[2022-09-12] MEDS ORDERED: ePHEDrine sulfate 50 MG/ML AMP ONE (12:23)
[2022-09-12] MEDS ORDERED: LIDOCAINE 2%/EPINEPHRINE 1:200,000 20 ML SDV ONE (12:23)
[2022-09-12] MEDS ORDERED: fentaNYL citrate 100 MCG/2 ML VIAL ONE (12:23)
[2022-09-12] MEDS ORDERED: SODIUM CHLORIDE 0.9% INJ 10 ML VIAL ONE (12:23)
[2022-09-12] MEDS ORDERED: BUPIVACAINE 0.25% 30 ML VIAL ONE (12:23)
[2022-09-12] MEDS ORDERED: fentaNYL 2MCG/ML ROPIVACAINE 1.25MG/ML 100 ML BAG EPI ONE (12:24)
--- NOTE | 2022-09-12 13:07 | Anesthesiology Consultation ---
Date of Service September 12, 2022 Assessment & Plan (1) Encounter for pre-operative examination: Chart Review Chart Review: Acceptable Risk for Labor Epidural History Height/Weight Height: 5 ft 8 in Weight: 96.162 kg Allergies Allergy/AdvReac Type Severity Reaction Status Date / Time No Known Drug Allergies Allergy Unknown Unknown Verified 09/12/22 08:26 Medications Home Medications Medication Instructions Recorded Confirmed Last Taken prenat.vits,ervin,[id number]-[id number] 1 tab PO DAILY 02/01/22 09/12/22 05/01/22 08:00 ferrous sulfate 325 mg (65 mg 325 mg PO DAILY 09/12/22 09/12/22 Unknown iron) tablet (Iron (ferrous sulfate)) Active Medications Generic Name Dose Route Start Last Admin Trade Name Freq PRN Reason Stop Dose Admin Lactated Ringer's 1,000 mls @ 125 mls/hr 09/12/22 08:00 09/12/22 08:34 Lr IV 09/14/22 07:59 125 mls/hr .Q8H PRN Administration L&D Protocol Protocol Oxytocin 30 units in 500 mls @ 7 mls/hr 09/12/22 09:09 09/12/22 11:30 Pitocin IV 09/14/22 09:08 0.42 units/hr .Q24H PRN 7 mls/hr Labor Induction/Augmentation Titration Protocol 0.42 UNITS/HR Past Medical History Medical History Abdominal pain +CONSTIPATION Anemia Anxiety and depression History of COVID-19 08/08/20>SWELLING IN LE (NO CURRENT PROBLEMS) Migraine Varicella vaccination Past Family History Family History Grandmother (Maternal) Charlton disease Diabetes Mother Diabetes Type 1 diabetes Family/Other Down syndrome cousin Father Spina bifida Other Breast cancer No family history of adverse response to anesthesia No family history of bleeding disorder Denies family history of Ovarian cancer Prostate cancer Myocardial infarction Colorectal cancer Colonic polyp Past Surgical History Surgical History History of ankle surgery RT History of colonoscopy History of esophagogastroduodenoscopy (EGD) History of hip surgery RT History of wisdom tooth extraction S/P dilatation and curettage Social History Smoking Status: Never smoker Hx Alcohol Use: Yes Alcohol type: beer, wine and hard liquor alcohol intake frequency: holidays/special occasions only Hx Substance Use: No substance use type: does not use Physical Exam Vital Signs Last Vital Signs Temp 36.7 C 09/12/22 11:29 Pulse 67 09/12/22 12:29 Resp 18 09/12/22 12:29 BP 108/65 09/12/22 12:29 Testing Laboratory Results 09/12/22 08:12 Blood Type O Positive 09/12/22 08:12 Antibody Screen NEGATIVE 09/12/22 08:12
[2022-09-12] MEDS ORDERED: NALOXONE HCL 0.4 MG/1 ML VIAL/CARP IV PRN (13:38)
[2022-09-12] MEDS ORDERED: NALOXONE HCL 1 MG in SODIUM CHLORIDE 0.9% 1000ML 1,000 ML IV PRN (13:38)
[2022-09-12] MEDS ORDERED: ePHEDrine sulfate 50 MG/ML AMP IV PRN (13:38)
[2022-09-12] MEDS ORDERED: fentaNYL 2MCG/ML ROPIVACAINE 1.25MG/ML 100 ML BAG EPI PRN (13:38)
[2022-09-12] MEDS ORDERED: ONDANSETRON INJ 2 MG/ML 2 ML VIAL IV PRN (13:38)
--- NOTE | 2022-09-12 14:06 | Labor Progress Brief Note ---
Date of Service September 12, 2022 Subjective Comfortable with epidural. Assessment & Plan Admission and Anticipated Discharge Date Admission Date: September 12, 2022 Physical Exam Genitourinary: /-1 AROM during exam with finger for clear fluid FHT Cat 1 [place] Q3-4 Pit @ 7 Results & Data ([facility]) Vital Signs (Past 12 Hours) Vital Signs Temp Pulse Resp BP Pulse Ox 09/12/22 08:00 97.5 F L 20 09/12/22 14:01 78 100 09/12/22 13:58 70 109/54 L 09/12/22 13:56 72 100 09/12/22 13:52 68 106/56 L 09/12/22 13:51 70 100 09/12/22 13:46 77 100 09/12/22 13:47 76 104/56 L 09/12/22 13:41 100 09/12/22 13:41 72 09/12/22 13:41 70 102/56 L 09/12/22 13:39 77 94/55 L 09/12/22 13:36 70 100 09/12/22 13:37 71 94/53 L 09/12/22 13:35 65 98/52 L 09/12/22 13:33 63 103/52 L 09/12/22 13:31 86 100 09/12/22 13:26 77 100 09/12/22 13:21 68 100 09/12/22 13:16 65 100 09/12/22 13:11 74 100 09/12/22 12:29 67 18 108/65 09/12/22 11:29 20 09/12/22 11:29 98.1 F 20 09/12/22 11:30 67 109/67 09/12/22 10:41 72 20 123/74 09/12/22 07:51 77 128/69 Coding Level of Care Code None
--- NOTE | 2022-09-12 15:31 | Delivery Summary ---
Vaginal Delivery Summary Date of Service September 12, 2022 Vaginal Delivery Summary DIAGNOSES: 1. Cabrajal intrauterine at 39w2d gestation. 2. Induction of Labor. 3. Group B Streptococcus Neg. PROCEDURE: Spontaneous vaginal delivery and repair of second degree laceration. SURGEON: Jaky Lee MD. ARMATURE TESTER: None. ESTIMATED BLOOD LOSS: 300 mL. COMPLICATIONS: None. PLACENTA: Spontaneous and intact with a 3-vessel cord. DISPOSITION: Stable to labor and delivery. DESCRIPTION: The patient pushed well and brought the head to in DOA position. The infant's head was allowed to deliver with contraction force and no further active pushing, with the perineum protected during this time. There was a loose nuchal cord which the baby delivered through. The left shoulder was anterior. The shoulders and body delivered without any difficulty, and the was placed on the maternal abdomen. It was vigorous and moving all extremities, and making respiratory efforts. The cord was doubly clamped by the MD and then cut by the FOB. The placenta delivered spontaneously and was noted to be intact and with a 3VC. The cervix, vagina and perineum were examined and were found to have a second degree laceration which was repaired with 3-0 vicryl suture. The fundus was firm and lochia minimal immediately after delivery. [facility] Vaginal Delivery Charge Vaginal Delivery Codes: 43733 global code for the antepartum, delivery, and post-
[2022-09-12] MEDS ORDERED: DIPHTHERIA/TETANUS/PERTUSSIS 0.5 ML SYR/VIAL IM ONE (16:21)
[2022-09-12] MEDS ORDERED: HYDROCORTISONE ACETATE 25 MG SUPP PR PRN (16:21)
[2022-09-12] MEDS ORDERED: oxyCODONE/ACETAMINOPHEN 5mg/325mg TAB PO PRN (16:21)
[2022-09-12] MEDS ORDERED: ACETAMINOPHEN 325 MG TAB PO PRN (16:21)
[2022-09-12] MEDS ORDERED: BENZOCAINE 20% AER SPR 82.5 GM CAN EXT PRN (16:21)
--- NOTE | 2022-09-12 16:35 | Anesthesia Procedure Note ---
Date of Service September 12, 2022 Anesthesia Post Epidural Note Vital Signs Vital Signs: Temp Pulse Resp BP Pulse Ox 36.5 C 64 18 124/74 99 09/12/22 14:31 09/12/22 16:31 09/12/22 14:31 09/12/22 16:31 09/12/22 15:21 Notes Mental Status: alert / awake / arousable and participated in evaluation Nausea / Vomiting: adequately controlled Pain: adequately controlled Airway Patency, RR, SpO2: stable & adequate BP & HR: stable & adequate Hydration State: stable & adequate Neuraxial Anesthesia: was administered and sensory block is resolving Anesthetic Complications: no major complications apparent Epidural: Removed without complications and With tip intact
[2022-09-12] MEDS: DOCUSATE SODIUM 100 MG CAP PO SCH (20:38)
[2022-09-13] MEDS: IBUPROFEN 600 MG TAB PO PRN ×2 (05:39→19:38)
--- NOTE | 2022-09-13 06:08 | Obstetrical Progress Note ---
Date of Service <Cami Schroeder MD - Last Filed: 09/13/22 07:29> September 13, 2022 Assessment & Plan <Cami Schroeder MD - Last Filed: 09/13/22 07:29> (1) care following vaginal delivery: 26yo at 39w2d for IOL elective now PPD1. History of 8lb in 2020. O pos, Rub Imm, RPR NR, Hep neg, HIV, neg, GTT fail 1hr pass 2hr, GC/CT neg, TSH 1.4, CF/SMA neg, low risk pano XX. PPD1. Overall doing well. Tolerating PO. Encourage ambulation. <Jaky Lee MD - Last Filed: 09/13/22 07:03> (1) care following vaginal delivery: Subjective <Cami Schroeder MD - Last Filed: 09/13/22 07:29> Ambulation: ambulating normally Voiding: no voiding problems Passing Gas:: No (feels things moving around) Diet Tolerance:: regular diet Lochia:: Small Current Pain Level(1-10): 0 Review of Systems no f/c/CP/SOB/calf tenderness Physical Exam <Cami Schroeder MD - Last Filed: 09/13/22 07:29> Constitutional WD/WN, vitals as above Respiratory normal respiratory effort, lungs clear to auscultation Cardiovascular RRR, no murmur, no edema Extremities: no calf tenderness Psychiatric A+Ox3, euthymic affect Genitourinary OB Exam Abdomen: + fundal height (@ the level of the umbilicus) Fundus: + firm <Jaky Lee MD - Last Filed: 09/13/22 07:03> Gastrointestinal (Abdomen) Fundus -1 below umbilicus Results & Data ([facility]) <Cami Schroeder MD - Last Filed: 09/13/22 07:29> Vital Signs (Past 12 Hours) Vital Signs Temp Pulse Resp BP Pulse Ox O2 Del Method 09/12/22 23:00 36.8 C 74 16 114/72 98 Room Air 09/12/22 19:30 37.0 C 78 16 123/78 99 Room Air <Jaky Lee MD - Last Filed: 09/13/22 07:03> Co-Signing Physician Notes Resident Physician Supervision Note: I interviewed and examined the patient. Discussed with Dr. Schroeder and agree with findings and plan as documented in the note. Any exceptions or clarifications a re listed here: [ ] Documented By: Jaky Lee MD, FACOG <Jaky Lee MD - Last Filed: 09/13/22 07:03> Resident Involvement: Resident Care Provided Care Provided: OB Delivery
[2022-09-13 06:42] LABS: Hematocrit (blood only) 30.4 % (34.1-44.9); Hemoglobin 10.2 g/dl (12.0-16.0); Mean Corpuscular Hemoglobin 27.9 pg (25.0-34.0); Mean Corpuscular Hgb Conc 33.6 g/dL (32.0-36.0); Mean Corpuscular Volume 83.3 fL (80.0-100.0); Platelet Count 144 K/uL (130-400); RDW Coefficient of Variation 13.2 % (11.5-14.5); RDW Standard Deviation 40.7 fL (36.4-46.3); Red Blood Count 3.65 M/uL (3.93-5.22); White Blood Count 7.61 K/ul (4.8-10.8)
[2022-09-13] MEDS: PRENATAL VITAMIN 1 TAB PO SCH (09:20)
[2022-09-13] MEDS: DOCUSATE SODIUM 100 MG CAP PO SCH ×2 (09:20→19:38)
--- NOTE | 2022-09-14 06:34 | Obstetrical Progress Note ---
Date of Service <Cami Schroeder MD - Last Filed: 09/14/22 06:57> September 14, 2022 Assessment & Plan <Cami Schroeder MD - Last Filed: 09/14/22 06:57> (1) care following vaginal delivery: 26yo at 39w2d for IOL elective now PPD2. History of 8lb in 2020. O pos, Rub Imm, RPR NR, Hep neg, HIV, neg, GTT fail 1hr pass 2hr, GC/CT neg, TSH 1.4, CF/SMA neg, low risk pano XX. PPD1. Overall doing well. Tolerating PO. Encourage ambulation. <Pauly William MD, FACOG - Last Filed: 09/14/22 07:40> (1) care following vaginal delivery: Subjective <Cami Schroeder MD - Last Filed: 09/14/22 06:57> Ambulation: ambulating normally Voiding: no voiding problems Passing Gas:: No Diet Tolerance:: regular diet Lochia:: Small Feeding Type:: bottle feeding Review of Systems no f/c/CP/SOB/calf tenderness Physical Exam <Cami Schroeder MD - Last Filed: 09/14/22 06:57> Constitutional WD/WN, vitals as above Respiratory normal respiratory effort, lungs clear to auscultation Cardiovascular RRR, no murmur, no edema Extremities: no calf tenderness Psychiatric A+Ox3, euthymic affect Genitourinary OB Exam Abdomen: + fundal height (@ the level of the umbilicus) Fundus: + firm Results & Data ([facility]) <Cami Schroeder MD - Last Filed: 09/14/22 06:57> Vital Signs (Past 12 Hours) Vital Signs Temp Pulse Resp BP Pulse Ox O2 Del Method 09/14/22 05:00 36.9 C 73 18 119/75 98 Room Air 09/13/22 19:35 Room Air 09/13/22 19:34 37 C 86 18 128/85 97 Room Air <Pauly William MD, FACOG - Last Filed: 09/14/22 07:40> Co-Signing Physician Notes Resident Physician Supervision Note: I interviewed and examined the patient. Discussed with Dr. Schroeder and agree with findings and plan as documented in the note. Any exceptions or clarifications are listed here: Doing well. Routine care. PLan d/c. Instructions given. Documented By: Pauly William MD, FACOG Resident Activity Tracking <Cami Schroeder MD - Last Filed: 09/14/22 06:57> Resident Involvement: Resident Care Provided Care Provided: OB Delivery
[2022-09-14 07:05] LABS: Hematocrit (blood only) 30.1 % (34.1-44.9); Hemoglobin 10.1 g/dl (12.0-16.0)
[2022-09-14] MEDS: DOCUSATE SODIUM 100 MG CAP PO SCH (07:29)
[2022-09-14] MEDS: PRENATAL VITAMIN 1 TAB PO SCH (07:29)
--- NOTE | 2022-09-14 08:06 | Medical Student Progress Note ---
Date of Service September 14, 2022 Assessment & Plan (1) care following vaginal delivery: Plan: Patient is a 26 year old female on PPD2 who presented on 09/12/22 for induction of labor at 39w2d. Her delivery was complicated by a second degree laceration. Vital signs stable. Labs trending appropriately. Overall, she is doing well and is ready for discharge today. The patient is in agreement with being discharged. Dr. William discussed care discharge instructions with the patient. Admission and Anticipated Discharge Date Admission Date: September 12, 2022 Subjective Patient is a 26 year old female on PPD2 who presented on 09/12/22 for induction of labor at 39w2d. Her delivery was complicated by a second degree laceration. She previously had an 8 lb in 2019. She was stable overnight with no concerns other than not sleeping well due to her baby crying. The lochia is decreasing. She has been able to ambulate without difficulty or leg pain. She has yet to flatulate or defecate, but has been urinating without discomfort. The patient is eating and drinking normally without nausea, vomiting, or abdominal pain. She is not having chest pain, shortness of breath, fever, or chills. She is planning on bottle feeding and has not had breast discomfort yet. Physical Exam Neck: CTAB. No wheezing, rhonchi, or rales. Cardiovascular: RRR. No murmurs, rubs, gallops. Gastrointestinal (Abdomen): Nondistended, No tenderness to palpation. Uterus firm and approximately at the level of the umbilicus. Musculoskeletal: No calf edema or tenderness to palpation. Results & Data ([facility]) Vital Signs (Past 12 Hours) Vital Signs Temp Pulse Resp BP Pulse Ox O2 Del Method 09/14/22 05:00 36.9 C 73 18 119/75 98 Room Air Laboratory Results Laboratory Results WBC 7.61 K/ul (4.8-10.8) 09/13/22 06:16 RBC 3.65 M/uL (3.93-5.22) L 09/13/22 06:16 Hgb 10.1 g/dl (12.0-16.0) L 09/14/22 06:35 Hct 30.1 % (34.1-44.9) L 09/14/22 06:35 MCV 83.3 fL (80.0-100.0) 09/13/22 06:16 MCH 27.9 pg (25.0-34.0) 09/13/22 06:16 MCHC 33.6 g/dL (32.0-36.0) 09/13/22 06:16 RDW Std Deviation 40.7 fL (36.4-46.3) 09/13/22 06:16 RDW Coeff of Cornelius 13.2 % (11.5-14.5) 09/13/22 06:16 Plt Count 144 K/uL (130-400) 09/13/22 06:16 MPV 11.0 fL (9.4-12.3) 09/13/22 06:16 SARS-CoV-2, RNA, NAAT NEGATIVE (NEGATIVE) 09/12/22 Unknown Blood Type O Positive 09/12/22 08:12 Antibody Screen NEGATIVE 09/12/22 08:12 Medications Administered Home Medications Medication Instructions Recorded Confirmed Last Taken prenat.vits,ervin,[id number] 1 tab PO DAILY 02/01/22 09/12/22 05/01/22 08:00 ferrous sulfate 325 mg (65 mg 325 mg PO DAILY 09/12/22 09/12/22 Unknown iron) tablet (Iron (ferrous sulfate)) Active Medications Generic Name Dose Route Start Last Admin Trade Name Ab PRN Reason Stop Dose Admin Acetaminophen 650 mg 09/12/22 16:21 09/12/22 23:09 Acetaminophen 325 Mg Tab PO 10/12/22 16:20 650 mg Q6H PRN Administration Pain/PONCE/Fever Benzocaine 1 appln 09/12/22 16:21 09/12/22 20:39 Benzocaine 20% Aer Spr 82.5 Gm Can EXT 10/12/22 16:20 1 appln PRN PRN Administration Perineal Discomfort Docusate Sodium 100 mg 09/12/22 21:00 09/14/22 07:29 Docusate Sodium 100 Mg Cap PO 10/12/22 20:59 100 mg DAILY@ [facility] Administration Lactated Ringer's 1,000 mls @ 125 mls/hr 09/12/22 08:00 09/12/22 17:40 Lr IV 09/14/22 07:59 Infused .Q8H PRN Infusion L&D Protocol Protocol Ibuprofen 600 mg 09/12/22 16:21 09/13/22 19:38 Ibuprofen 600 Mg Tab PO 10/12/22 16:20 600 mg Q4H PRN Administration Pain/PONCE/Cramping/Fever Prenat Multivit/Maries/Iron/Folic Ac 1 tab 09/13/22 08:00 09/14/22 07:29 Vitamin 1 Tab PO 10/13/22 07:59 1 tab DAILY@08 BOBY Administration
== END 2022-09-14 10:50 | disposition home or self-care (01) | DRG 807 ==
LOC: 4S1 07:36 → 4E2 18:05
DX: Z3A.39 39 weeks gestation of pregnancy; O99.02 Anemia complicating childbirth; O70.1 Second degree perineal laceration during delivery; Z37.0 Single live birth; O69.81X0 Labor and delivery complicated by cord around neck, without compression, not applicable or unspecified; Z79.899 Other long term (current) drug therapy

== ENCOUNTER 2025-06-09 08:04 | Inpatient (IN) ==
[2025-06-09] MEDS ORDERED: CALCIUM CARBONATE 500 MG CHEWABLE TAB PO PRN (08:18)
[2025-06-09] MEDS ORDERED: ACETAMINOPHEN 500 MG TAB PO PRN (08:18)
[2025-06-09] MEDS ORDERED: LIDOCAINE 1% LOCAL 20 ML VIAL INFIL PRN (08:18)
[2025-06-09 08:57] LABS: Hematocrit (blood only) 29.2 % (37.0-47.0); Hemoglobin 9.6 g/dl (12.0-16.0); Mean Corpuscular Hemoglobin 26.8 pg (25.0-34.0); Mean Corpuscular Volume 81.6 fL (80.0-100.0); Platelet Count 166 K/uL (130-400); RDW Standard Deviation 38.6 fL (36.4-46.3); Red Blood Count 3.58 M/uL (4.20-5.40); White Blood Count 6.69 K/ul (4.8-10.8)
[2025-06-09] MEDS: OXYTOCIN 30 UNITS/NSS 30 UNITS/500 ML BAG IV PRN ×2 (09:11→16:09)
[2025-06-09] MEDS: PENICILLIN GK 6 MU in DEXTROSE 5% 250 ML IV STA (09:11)
[2025-06-09] MEDS: LACTATED RINGER'S 1,000 ML IV PRN (09:13)
[2025-06-09] MEDS ORDERED: fentANYL 2 MCG/ML BUPIVacaine 0.125%-NSS 100ML BAG EPI PRN (10:15)
[2025-06-09] MEDS ORDERED: BUPIVACAINE 0.25% PF 30 ML VIAL EPI PRN (10:15)
[2025-06-09] MEDS ORDERED: NALBUPHINE HCL INJ 10 MG/ML AMP IV PRN (10:15)
[2025-06-09] MEDS ORDERED: ROPIVACAINE 0.5% PF 5 MG/ML 20 ML VIAL EPI PRN (10:15)
[2025-06-09] MEDS ORDERED: SODIUM CHLORIDE 0.9% PF INJ 10 ML VIAL EPI PRN (10:15)
[2025-06-09] MEDS ORDERED: ONDANSETRON INJ 2 MG/ML 2 ML VIAL IV PRN (10:15)
[2025-06-09] MEDS ORDERED: diphenhydrAMINE 50 MG/ML VIAL IV PRN (10:15)
[2025-06-09] MEDS ORDERED: NALOXONE HCL 1 MG in SODIUM CHLORIDE 0.9% 1,000 ML IV PRN (10:15)
[2025-06-09] MEDS ORDERED: NALOXONE HCL 0.4 MG/1 ML VIAL/CARP IV PRN (10:15)
[2025-06-09] MEDS ORDERED: LIDOCAINE 2% MPF LOCAL 5 ML VIAL EPI PRN (10:15)
--- NOTE | 2025-06-09 10:15 | Anesthesiology Consultation ---
Date of Service June 09, 2025 Assessment & Plan (1) Encounter for pre-operative examination: Chart Review Chart Review: Patient NOT seen in Pre Admission Testing and Acceptable Risk for Labor Epidural Consults Requested none History Height/Weight Height: 5 ft 8 in Weight: 99.337 kg Allergies Allergy/AdvReac Type Severity Reaction Status Date / Time No Known Drug Allergies Allergy Unknown Unknown Verified 06/08/25 13:50 Medications Home Medications Medication Instructions Recorded Confirmed Last Taken 21-iron fu-folic acid 1 tab PO DAILY 11/03/24 06/09/25 06/08/25 [ Complete] ferrous sulfate 325 mg (65 mg 325 mg PO DAILY 05/26/25 06/09/25 06/08/25 iron) tablet (iron) Active Medications Generic Name Dose Route Start Last Admin Trade Name Freq PRN Reason Stop Dose Admin Lactated Ringer's 1,000 mls @ 125 mls/hr 06/09/25 08:18 06/09/25 09:13 Lr IV 06/11/25 08:17 125 mls/hr .Q8H PRN Administration L&D Protocol Protocol Oxytocin 30 units in 500 mls @ 2 mls/hr 06/09/25 08:20 06/09/25 09:11 Pitocin 30 Units/Nss IV 06/11/25 08:19 0.12 units/hr .Q24H PRN 2 mls/hr Labor Induction/Augmentation Administration Protocol 0.12 UNITS/HR Past Medical History Medical History depression Anemia Anxiety and depression Migraine without aura, not intractable, without status migrainosus Varicella vaccination Missed Anemia Migraine History of COVID-19 08/08/20>SWELLING IN LE (NO CURRENT PROBLEMS) Abdominal pain +CONSTIPATION Past Family History Family History Grandmother (Maternal) [place] disease Diabetes Mother Diabetes Type 1 diabetes Family/Other Down syndrome cousin Father Spina bifida Other Breast cancer No family history of adverse response to anesthesia No family history of bleeding disorder Denies family history of Ovarian cancer Prostate cancer Myocardial infarction Colorectal cancer Colonic polyp Past Surgical History Surgical History S/P dilatation and curettage History of esophagogastroduodenoscopy (EGD) History of colonoscopy History of ankle surgery RT History of wisdom tooth extraction History of hip surgery RT Social History Smoking Status: Never smoker Do You Dip or Chew Tobacco: No Hx Alcohol Use: No Alcohol type: beer, wine and hard liquor alcohol intake frequency: holidays/special occasions only Hx Substance Use: No substance use type: does not use Physical Exam Vital Signs Last Vital Signs Temp 98.2 F 06/09/25 08:25 Pulse 83 06/09/25 09:22 Resp 18 06/09/25 09:45 BP 116/62 06/09/25 09:22 Testing Laboratory Results 06/09/25 08:29
[2025-06-09] MEDS: BUPIVACAINE 0.25% PF 30 ML VIAL ONE (10:38)
[2025-06-09] MEDS: LIDOCAINE 2%/EPINEPHRINE 1:200,000 20 ML PF ONE (10:38)
[2025-06-09] MEDS: fentANYL 2 MCG/ML BUPIVacaine 0.125%-NSS 100ML BAG ONE (10:39)
[2025-06-09] MEDS: SODIUM CHLORIDE 0.9% PF INJ 10 ML VIAL ONE (12:03)
[2025-06-09] MEDS: BUPIVACAINE 0.25% PF 30 ML VIAL EPI STA (12:03)
[2025-06-09] MEDS: LIDOCAINE 2%/EPINEPHRINE 1:200,000 20 ML PF EPI STA (12:03)
[2025-06-09] MEDS: SODIUM CHLORIDE 0.9% PF INJ 10 ML VIAL EPI STA (12:03)
[2025-06-09] MEDS: PENICILLIN GK 3 MU in DEXTROSE 5% 100 ML IV PRN (13:02)
--- NOTE | 2025-06-09 14:09 | History & Physical Report ---
Date of Service June 09, 2025 Assessment & Plan (1) LGA (large for gestational age) fetus affecting management of mother: Plan: Eliana is a 29-year-old G4, P2 currently at 39 weeks 3 days gestational age presents for induction of labor. 1. Fetus: Category 1 tracing 2. Labor: Favorable cervix will start with oxytocin per regular protocol. Will plan for rupture of membranes when complete on GBS treatment 3. GBS positive penicillin ordered 4. Vitals within normal limits at time of admission (2) resulting from in vitro fertilization, antepartum: (3) Surrogate : (4) Carrier of group B Streptococcus: Admission and Anticipated Discharge Date Admission Date: June 09, 2025 History of Present Illness Primary Care Provider: Angelic Castro MD Eliana juan is a 29-year-old G4, P2 currently at 39 weeks 3 days gestational age presents for induction of labor. and Delivery Plans IVF/ICSI- Pt is ICSI * Echo *Growth US Q4wks @28wks *Weekly NSTs @36wks *Weekly BHARAT's @36wks(ICSI only) Surrogate Biological couple in [place] GBS positive in urine *treat in Labor LGA 36wks EFW 90% AC >98% *Offered IOL by LA------06/09 Lab Results OB Labs: Blood Type O Positive 11/07/24 Antibody Screen NEGATIVE 11/07/24 Hgb 9.6 g/dl (12.0-16.0) L 06/09/25 Hct 29.2 % (37.0-47.0) L 06/09/25 MCV 81.6 fL (80.0-100.0) 06/09/25 Plt Count 166 K/uL (130-400) 06/09/25 Rubella IgG Antibody Immune (Immune) 11/07/24 RPR Nonreactive (Nonreactive) 02/06/22 Treponema pallidum Ab Negative (Negative) 06/09/25 Hep Bs Antigen Negative (Negative) 11/07/24 Hep Bs Antigen NON-REACTIVE (NON-REACTIVE) 02/06/22 Hepatitis C Antibody Negative (Negative) 11/07/24 Hepatitis C Ab (EIA) NON-REACTIVE (NON-REACTIVE) 02/06/22 HIV 1&2 Ab/P24 Ag 4thGn Negative (Negative) 11/07/24 HIV (1&2) Ag & Ab Conf NON-REACTIVE (NON-REACTIVE) 02/06/22 Glucose 1 Hr 50 gm 118 mg/dl (70-130) 03/24/25 OB Optional Labs: Chlamydia trachomatis RNA Not Detected (NotDetected) 05/15/25 Neisseria gonorrhoeae RNA Not Detected (NotDetected) 05/15/25 Thyroid Stimulating Hormone (TSH) 0.865 uIu/ml (0.300-4.500) 04/13/23 Labs Reviewed: CF/SMA negative in prior (01/12/20) Allergies Allergy/AdvReac Type Severity Reaction Status Date / Time No Known Drug Allergies Allergy Unknown Unknown Verified 06/08/25 13:50 Home Medications Medication Instructions Recorded Confirmed Type 21-iron fu-folic acid 1 tab PO DAILY 11/03/24 06/09/25 History [ Complete] ferrous sulfate 325 mg (65 mg 325 mg PO DAILY 05/26/25 06/09/25 History iron) tablet (iron) Patient History Medical History depression Anemia Anxiety and depression Migraine without aura, not intractable, without status migrainosus Varicella vaccination Missed Anemia Migraine History of COVID-19 08/08/20>SWELLING IN LE (NO CURRENT PROBLEMS) Abdominal pain +CONSTIPATION Surgical History S/P dilatation and curettage History of esophagogastroduodenoscopy (EGD) History of colonoscopy History of ankle surgery RT History of wisdom tooth extraction History of hip surgery RT Family History Grandmother (Maternal) [place] disease Diabetes Mother Diabetes Type 1 diabetes Family/Other Down syndrome cousin Father Spina bifida Other Breast cancer No family history of adverse response to anesthesia No family history of bleeding disorder Denies family history of Ovarian cancer Prostate cancer Myocardial infarction Colorectal cancer Colonic polyp Social History (Updated 06/09/25 @ 08:21 by Maegan Porter RN) Smoking Status: Never smoker Second Hand Exposure: No; Do You Dip or Chew Tobacco: No; Hx Alcohol Use: No Hx Substance Use: No Preferred Language: Cuban Communication Ability: Effective Visual Impairment: No Limitations 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 Beliefs That Will Affect Care: None marital status: Single marital status details: Richardson Hendricks (26) [phone] Current Living Situation: Family and Significant Other Current Living Situation Comment: lives with fiance and two kids current occupational status: employed 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 [employer] Other Information That Helps Us Care for You: No Feels Safe at Home: Yes Safety Concerns: Feels Safe At This Time Assistive Devices: Contacts Assistive Devices Comment: contacts in Physical Exam Genitourinary: normal external appearance Manual OB Exam: + cervical dilation 5 cm, + cervical effacement 70% and + station -2 OB Exam Monitor Tracing: + external FHT monitor used, + external uterine monitor used, + category I and + normal FHT variability Results & Data Vital Signs (Past 12 Hours) Vital Signs Temp Pulse Resp BP Pulse Ox 06/09/25 14:03 70 108/54 L 06/09/25 13:59 70 99 06/09/25 13:54 70 100 06/09/25 13:49 71 99 06/09/25 13:48 75 118/57 L 06/09/25 13:44 81 93 06/09/25 13:39 67 99 06/09/25 13:34 75 100 06/09/25 13:33 75 108/57 L 06/09/25 13:29 75 100 06/09/25 13:24 81 100 06/09/25 13:19 73 100 06/09/25 13:18 65 118/58 L 06/09/25 13:14 66 100 06/09/25 13:09 78 100 06/09/25 13:04 71 100 06/09/25 13:03 76 107/60 06/09/25 13:00 18 06/09/25 13:00 18 06/09/25 12:59 75 98 06/09/25 12:54 74 99 06/09/25 12:49 69 100 06/09/25 12:48 73 109/62 06/09/25 12:44 69 99 06/09/25 12:39 79 100 06/09/25 12:34 99 06/09/25 12:34 72 06/09/25 12:34 71 103/59 L 06/09/25 12:30 18 06/09/25 12:30 18 06/09/25 12:29 73 100 06/09/25 12:24 70 100 06/09/25 12:19 72 100 06/09/25 12:17 65 95/53 L 06/09/25 12:14 72 99 06/09/25 12:09 71 100 06/09/25 12:04 73 98 06/09/25 12:02 67 96/54 L 06/09/25 12:00 18 06/09/25 12:00 18 06/09/25 11:59 69 98 06/09/25 11:54 70 99 06/09/25 11:49 70 99 06/09/25 11:48 70 100/55 L 06/09/25 11:44 68 99 06/09/25 11:39 69 98 06/09/25 11:34 71 100 06/09/25 11:33 71 104/58 L 06/09/25 11:30 18 06/09/25 11:30 18 06/09/25 11:29 72 100 06/09/25 11:24 67 100 06/09/25 11:19 72 100 06/09/25 11:18 69 102/58 L 06/09/25 11:14 80 100 06/09/25 11:09 77 100 06/09/25 11:04 79 100 06/09/25 11:02 74 115/66 06/09/25 11:00 18 06/09/25 11:00 18 06/09/25 10:59 80 100 06/09/25 10:57 77 115/75 06/09/25 10:54 72 100 06/09/25 10:51 67 104/56 L 06/09/25 10:49 82 99 06/09/25 10:46 110/59 L 06/09/25 10:44 99 06/09/25 10:44 82 06/09/25 10:44 83 107/58 L 06/09/25 10:42 77 109/55 L 06/09/25 10:40 77 111/56 L 06/09/25 10:39 79 99 06/09/25 10:38 78 109/64 06/09/25 10:36 82 121/65 06/09/25 10:34 78 114/62 100 06/09/25 10:29 86 100 06/09/25 10:28 86 124/74 06/09/25 10:24 82 18 98 06/09/25 10:19 78 99 06/09/25 10:00 18 06/09/25 10:00 18 06/09/25 09:45 18 06/09/25 09:45 18 06/09/25 09:22 83 116/62 06/09/25 09:15 18 06/09/25 09:15 18 06/09/25 08:50 18 06/09/25 08:50 18 06/09/25 08:25 18 06/09/25 08:25 36.8 C 18 06/09/25 08:22 36.8 C 18 06/09/25 08:17 85 125/60 Coding Level of Care Code None Diagnoses Excessive growth affecting management of in third trimester, single or unspecified fetus O36.63X0 Fetus number: single or unspecified fetus Trimester: third trimester resulting from in vitro fertilization, antepartum O09.819 Surrogate Z33.3 Carrier of group B Streptococcus Z22.330 (1) LGA (large for gestational age) fetus affecting management of mother Fetus number: single or unspecified fetus Trimester: third trimester Qualified Code(s): O36.63X0 - Maternal care for excessive growth, third trimester, not applicable or unspecified
[2025-06-09] MEDS ORDERED: OXYTOCIN 30 UNITS/NSS 30 UNITS/500 ML BAG IV PRN (15:57)
[2025-06-09] MEDS ORDERED: DIPHTHER/TETAN/PERTUS Vaccine (Tdap, Adol/Adult) 0.5mL IM ONE (15:57)
[2025-06-09] MEDS ORDERED: HYDROCORTISONE ACETATE 25 MG SUPP PR PRN (15:57)
--- NOTE | 2025-06-09 16:03 | Delivery Summary ---
Vaginal Delivery Summary Date of Service June 09, 2025 Vaginal Delivery Summary and 2nd Degree LAC Patient progressed to 10 cm dilated, 100% effaced +2 station and pushed over intact perineum with epidural anesthesia and delivered a viable with weight and Apgars pending. Had the delivered without difficulty quickly followed by shoulders and body. There is no to be a loose nuchal cord which was delivered through. was noted be vigorous soon after delivery and 1 minute delayed cord clamping was initiated. Cord was then double clamped and cut and taken to the waiting nursery staff although was still vigorous. Cord blood obtained and attention turned to delivery of the placenta which delivered intact with three-vessel cord with gentle cord traction. Inspection of perineum, vagina and cervix there is noted to be a second-degree p erineal laceration which was repaired with 3-0 Vicryl in traditional crown stitch. Needle sponge and instrument counts are correct at the completion of the case. Patient and stable in the immediate postdelivery timeframe. No complications noted and blood loss per QBL [facility] Vaginal Delivery Charge Delivery Type Details: and 2nd Degree LAC
--- NOTE | 2025-06-09 16:32 | Anesthesia Procedure Note ---
Date of Service June 09, 2025 Anesthesia Post Epidural Note Vital Signs Vital Signs: Temp Pulse Resp BP Pulse Ox 98.1 F 76 18 111/59 L 100 06/09/25 14:55 06/09/25 16:17 06/09/25 15:00 06/09/25 16:17 06/09/25 15:49 Notes Mental Status: alert / awake / arousable and participated in evaluation Nausea / Vomiting: adequately controlled Pain: adequately controlled Airway Patency, RR, SpO2: stable & adequate BP & HR: stable & adequate Hydration State: stable & adequate Neuraxial Anesthesia: was administered and sensory block is resolving Anesthetic Complications: no major complications apparent and Pt Satisfied with anesthetic care Epidural: Removed without complications and With tip intact
[2025-06-09] MEDS: IBUPROFEN 600 MG TAB PO PRN (17:48)
[2025-06-09] MEDS: BENZOCAINE 20% SPRY 85 APPLN/85 GM CAN EXT PRN (18:04)
[2025-06-09] MEDS: ACETAMINOPHEN 325 MG TAB PO PRN (20:09)
[2025-06-09] MEDS: DOCUSATE SODIUM 100 MG CAP PO SCH (20:09)
[2025-06-10 06:32] LABS: Hematocrit (blood only) 26.9 % (37.0-47.0); Hemoglobin 8.6 g/dl (12.0-16.0)
--- NOTE | 2025-06-10 08:11 | Obstetrical Progress Note ---
Date of Service June 10, 2025 Assessment & Plan (1) LGA (large for gestational age) fetus affecting management of mother: (2) Carrier of group B Streptococcus: (3) Surrogate : (4) resulting from in vitro fertilization, antepartum: Plan Assessment and plan 29 yo post- day 1 s/p with 2nd degree laceration. Fells well today. Vital signs stable Continue post- care Encourage ambulation and Pain controlled with ibuprofen Hgb stable Discharge home today, follow up with Dr. Yeh in 6 weeks. Admission and Anticipated Discharge Date Admission Date: June 09, 2025 Supervising Physician Co-Signing Physician Notes Patient seen with resident and agree with the above findings and plan. Stable for discharge today as preferred Subjective Post- HPI 29 yo post- day 1 s/p with 2nd degree laceration. Ambulation: ambulating normally Voiding: no voiding problems Passing Gas:: Yes Diet Tolerance:: regular diet Lochia:: Small Feeding Type:: bottle feeding Current Pain Level:Slight pain Resting comfortably this AM in NAD. Denies PONCE, CP, SOB, N/V/D, LE pain/swelling. Physical Exam Physical Exam: Post- PE General: patient resting comfortably, NAD, non-toxic in appearance, AA&O x 4, answers questions appropriately. Skin: warm, dry, intact HEENT: NC/AT, anicteric sclera, conjunctiva without injection, moist mucus membranes. Heart: +S1/S2, regular, no m/r/g Lungs: equal air entry bilaterally, no rales/rhonchi/wheezes Abd: +BS, soft, NT/ND, uterine fundus firm at umbilicus. Ext: warm, no clubbing/cyanosis or edema, Colten's neg. Neuro: nonfocal, patient AA&O x 4, speech intact, no facial droop, moving all extremities on command. Results & Data Vital Signs (Past 12 Hours) Vital Signs Temp Pulse Resp BP Pulse Ox O2 Del Method 06/10/25 03:25 36.7 C 71 16 100/66 97 Room Air 06/09/25 23:10 37.6 C H 83 16 120/72 97 Room Air Resident Activity Tracking Resident Involvement: Resident Care Provided Care Provided: Adult Hospital Medicine (1) LGA (large for gestational age) fetus affecting management of mother Fetus number: single or unspecified fetus Trimester: third trimester Qualified Code(s): O36.63X0 - Maternal care for excessive growth, third trimester, not applicable or unspecified
[2025-06-10 08:25] VITALS: O2SAT 99
[2025-06-10] MEDS: FERROUS SULFATE 325 MG TAB PO SCH (09:32)
[2025-06-10] MEDS: PRENATAL VITAMIN 1 TAB PO SCH (09:32)
[2025-06-10 11:24] VITALS: BP 113/74; PULSE 70; RESP 16; TEMP 98.6
== END 2025-06-10 15:45 | disposition home or self-care (01) | DRG 806 ==
LOC: 4S1 08:04 → 4E2 18:03